=== PATIENT | female | born 1975 ===

== ENCOUNTER 2021-12-03 11:15 | Outpatient (CLI) | payer OTHER | END 2021-12-03 12:00 | disposition home or self-care (01) | LOC: ASH CLINIC 11:15 | PROVIDERS: ATTEND General Practice | DX: U07.1 COVID-19 (principal) ==

== ENCOUNTER 2023-06-23 12:30 | Day surgery (SDC) | payer OTHER ==
[2023-06-23] MEDS ORDERED: ZITHROMAX500 MG PO (17:48)
== END 2023-06-23 21:50 | disposition home or self-care (01) ==
LOC: CIR.AMB 12:30
PROVIDERS: ATTEND Obstetrics & Gynecology
DX: N72 Inflammatory disease of cervix uteri (principal); Z88.6 Allergy status to analgesic agent; Z20.822 Contact with and (suspected) exposure to COVID-19